=== PATIENT | male | born 1960 | race Caucasian/White ===

== ENCOUNTER 2019-07-15 06:43 | Outpatient (CLI) | payer OTHER, SELFPAY | END 2019-07-15 06:44 | disposition home or self-care (01) | PROVIDERS: PCP Family Medicine; Visit Provider Surgery | DX: Z01.818 Encounter for other preprocedural examination (principal); Z11.59 Encounter for screening for other viral diseases | CPT/HCPCS: 87635; C9803; U0003 ==

== ENCOUNTER 2019-07-15 15:16 | Outpatient (CLI) | payer OTHER, SELFPAY | END 2019-07-15 15:17 | disposition home or self-care (01) | LOC: ANHSURGERY 15:19 | PROVIDERS: PCP Family Medicine; Visit Provider Surgery | DX: Z01.818 Encounter for other preprocedural examination (principal); K40.90 Unilateral inguinal hernia, without obstruction or gangrene, not specified as recurrent | CPT/HCPCS: 36415; 86850; 86900; 86901 ==

== ENCOUNTER 2019-07-17 08:53 | Outpatient (CLI) | payer OTHER, SELFPAY ==
[2019-07-17 18:00] LABS: SARS-CoV-2 RNA PCR Negative
== END 2019-07-17 08:54 | disposition home or self-care (01) ==
PROVIDERS: PCP Family Medicine; Visit Provider Surgery
DX: Z01.818 Encounter for other preprocedural examination (principal); Z11.59 Encounter for screening for other viral diseases
CPT/HCPCS: 87635; C9803; U0003

== ENCOUNTER 2019-07-18 01:15 | Day surgery (SDC) | payer OTHER, SELFPAY ==
[2019-07-10 13:52] VITALS: BMI 24.5
--- NOTE | 2019-07-17 12:13 | WPDANESEPPF ---
Anes - Initial Pre Proc Eval Procedure: Operation Date: 07/18/19 10:30 Proposed Procedures p Laparoscopic Left Inguinal Hernia Repair With Mesh, Davinci Assisted - Elroy Khan DO Date/Time: 07/17/19 12:13 Surgeon: Elroy Khan DO Pre Op Diagnosis: Left Inguinal Hernia Patient Data Age: 59 Gender: M Height: 6 ft 5 in Weight: 94 kg Allergies Allergy/AdvReac Type Severity Reaction Status Date / Time No Known Allergies Allergy Verified 07/10/19 13:54 Home Medications Medication Instructions Recorded Confirmed Type No Home Medications 07/10/19 07/10/19 History Patient hx anesthesia problems: none Family hx anesthesia problems: none [facility] Past Medical History Medical History Left inguinal hernia Mixed hyperlipidemia Family History Family History Father Malignant neoplasm of prostate Family history of lymphoma Mother No problems noted. Social History Social History Smoking status: Never smoker Alcohol intake: current Anes - Eval Final PreProcedure Day of Procedure 07/17/19 12:13 Patient weight: overweight Heart: regular rate and rhythm Lungs: clear to auscultation Airway: Mallampati scale class II Neurological: alert and oriented Last oral intake: >/= 8 hours ASA classification: II Emergent: no Anesthetic plan: proceed Anesthesia type and monitoring: general ETT and standard monitoring Informed Consent: The patient's anesthetic plan and its attendant risks and benefits were discussed with the patient/family/POA. Questions were solicited and answers provided to the satisfaction of the patient/family/POA.
[2019-07-18] VITALS (9 sets, daily range): BP systolic 107–120; BP diastolic 67–84; PULSE 44–65; RESP 14–18; TEMP 36.7–36.8; O2SAT 97–100
[2019-07-18] MEDS: LACTATED RINGERS 1,000 ML 30 ML IV CONT ×2 (09:40→12:37)
--- NOTE | 2019-07-18 10:35 | P.HP_ITS ---
H&P: HPI History of Present Illness Chief complaint: Left Inguinal Hernia Narrative: Lisandro Guzman is a 59 year old male who presented with pain in his left groin for the past several months. He noticed this first when lifting heavy objects. He was found to have a left inguinal hernia on exam and now pres ents for elective repair. Review of Systems Review of Systems: All systems reviewed & are unremarkable except as noted in HPI and below PMFSH Past Medical History Medical History Left inguinal hernia Mixed hyperlipidemia Family History Family History Father Malignant neoplasm of prostate Family history of lymphoma Mother No problems noted. Social History Social History Smoking status: Never smoker Alcohol intake: current Meds Home Medications and Allergies Home Medications Medication Instructions Recorded Confirmed Type No Home Medications 07/10/19 07/10/19 History Allergies Allergy/AdvReac Type Severity Reaction Status Date / Time No Known Allergies Allergy Verified 07/10/19 13:54 Vital Signs Vital Signs - 24 hr 07/18/19 09:52 Temperature 36.7 C Pulse Rate 58 L Respiratory Rate 16 Blood Pressure 113/84 Pulse Oximetry 97 Exam GI: GI Palp: Yes Soft to palpation and No Tenderness to palpation present (GI) Percussion: Yes normal to percussion Auscultation: normal bowel sounds : Scrotum: inguinal hernia on the left Assessment and Plan Assessment and plan (1) Left inguinal hernia: Code(s): K40.90 - Unilateral inguinal hernia, without obstruction or gangrene, not specified as recurrent Status: Acute Assessment and Plan: I have recommended laparoscopic left inguinal hernia repair with mesh, da Eliz assisted. I have discussed the procedure, risks, benefits, and alternatives with the patient. All questions answered. No changes since last seen in office.
[2019-07-18] MEDS: ceFAZolin 2 GM/D5W 50 ML 2 GM/50 ML BAG IVPB (11:02)
[2019-07-18] MEDS: IBUPROFEN IV 800 MG/200 ML 800 MG/200 ML BAG 400 MG IVPB (11:22)
[2019-07-18] MEDS: BUPIVACAINE/EPINEPHRINE 0.5% 30 ML VIAL INFILTRATE (11:37)
--- NOTE | 2019-07-18 12:21 | SUR.OPER ---
Ebl=10ml
--- NOTE | 2019-07-18 12:32 | PM.PROC ---
Procedure Note - Detailed Date of procedure: 07/18/19 Pre-op diagnosis: Left Inguinal Hernia Post-op diagnosis: same (Indirect LIH) Procedure performed: Laparoscopic left inguinal hernia repair with Progrip mesh, da Eliz assisted Description of procedure: Procedure as well as risks, benefits, and alternatives were discussed with the patient. Written consent was obtained and placed in chart prior to procedure. Patient was brought back to surgical suite. He was placed supine on operating table. Time-out was done to confirm patient and procedure. He was then intubated by Anesthesia Department. His abdomen was prepped and draped in sterile fashion using chlorhexidine prep. 0.5% bupivacaine with epinephrine was infiltrated at each location for incision. A 12 millimeter transverse incision was made just superior to the umbilicus using a 15 blade scalpel. Blunt dissection was carried out down to the linea alba. A vertical incision was made at the linea alba using a 15 blade scalpel. The peritoneum was then bluntly entered. A 12 millimeter trocar was inserted and carbon dioxide insufflation was used to create a pneumoperitoneum. A camera was inserted and the abdominal cavity was inspected. The patient was placed in slight Trendelenburg position. An 8 millimeter incision was made on the right lateral abdomen and an 8 millimeter trocar was inserted under direct visualization. Another 8 millimeter incision was made in the left lateral abdomen and an 8 millimeter trocar was inserted under direct visualization. The robotic arms were brought up to the patient's bedside and secured to the ports. The camera and instruments were inserted. I then moved over to the robotic console and took control of the camera and instruments. After careful inspection of the abdominal cavity, I began scoring the peritoneum along the left lower quadrant using scissors with electrocautery. The preperitoneal plane was entered and this was carefully dissected caudally along the inferior epigastric vessels. Careful dissection with scissors with electrocautery and blunt dissection was used to continue this dissection. I dissected far enough laterally to allow for mesh placement, and also dissected medially to identify the pubic arch and Sin's ligament. The hernia sac was identified and carefully dissected posteriorly. The cord contents were also identified and the peritoneum was carefully dissected far enough posteriorly to allow for mesh placement. Once an adequate pocket was created, I then placed the mesh within the preperitoneal pocket and carefully unfolded it. The mesh was centered on the hernia defect with adequate overlap circumferentially. The inferior edge of the mesh was inspected to ensure that it was far enough away from the peritoneal edge. The mesh appeared in proper position overlying the entire myopectineal orifice. The peritoneum was then closed over the mesh using a 3-0 V-lock running absorbable suture. The robotic instruments were removed. The robotic arms were disengaged from the ports and moved away from the bedside. The patient was flattened out in bed, the ports were removed under direct visualization, and the pneumoperitoneum was released. The fascia of the umbilical incision was approximated using an 0 Vicryl [id number] suture. The skin of the incisions was approximated using 4-0 Monocryl subcuticular suture, and Exofin glue was applied on top. The patient was awakened from anesthesia, extubated, and transferred to recovery. Implants: Progrip Mesh 12cm x 16cm Anesthesia: GETA and local (0.5% bupivicaine with epi) Surgeon: Elroy Khan DO Estimated blood loss (mL): 10 Drains: No Packing: No Pathology: none sent Complications: No immediate complications Condition: stable Disposition: same day Findings: This is a 59-year-old man who presented with discomfort and a bulge in his left groin region. He 1st noticed this several months ago while
== END 2019-07-18 15:11 | disposition home or self-care (01) ==
PROVIDERS: PCP Family Medicine; Visit Provider Surgery
PROC: 8E0Y4CZ Robotic Assisted Procedure of Lower Extremity, Percutaneous Endoscopic Approach (ICD-10-PCS; CPT 49650; principal; 2019-07-18 10:30)
DX: K40.90 Unilateral inguinal hernia, without obstruction or gangrene, not specified as recurrent (principal); E78.2 Mixed hyperlipidemia
CPT/HCPCS: 49650; S2900; A9270; C1781; J0690; J1100; J1741; J2250; J2405; J2704; J2710; J3010; J7120

== ENCOUNTER 2021-08-08 08:30 | Emergency (ER) | payer OTHER, SELFPAY ==
--- NOTE | 2021-08-08 08:32 | ED.GENADULT ---
HPI - General Adult General Chief complaint: Upper Respiratory Infection Stated complaint: Cough Time Seen by Provider: 08/08/21 08:31 History of Present Illness HPI narrative: 61-year-old male patient presents to the [facility] with complaints of cold and flulike symptoms for the past 5 to 6 days. Patient states he has had a runny nose, cough that will not go away, body aches and fevers. Patient states he did not get vaccinated for influenza but is vaccinated for COVID. Patient states he has not tested himself for COVID. Patient states that his 's first had very similar symptoms and then he developed them. Patient states he started with a sore throat that has now since resolved but continues to have a cough. Denies any history of smoking. Related Data Allergies Allergy/AdvReac Type Severity Reaction Status Date / Time No Known Allergies Allergy Verified 08/08/21 08:41 Review of Systems Review of Systems: CONSTITUTIONAL: Positive fever, chills, body aches, denies sweats. EYES: Denies visual changes, redness, or discharge. ENT: Positive rhinorrhea, congestion, positive sore throat, but has since resolved, denies otalgia. CARDIOVASCULAR: Denies chest pain, palpitations, or edema. RESPIRATORY: Positive cough, denies dyspnea. GASTROINTESTINAL: Denies abdominal pain, nausea, vomiting, or diarrhea. GENITOURINARY: Denies dysuria or hematuria. SKIN: Denies rash or itching. MUSCULOSKELETAL: Denies back pain, joint pain, or myalgia. NEUROLOGIC: Positive headache, denies numbness, or weakness. PSYCHIATRIC: Denies anxiety or depression. [facility] Past Medical History Medical History (Updated 08/08/21 @ 09:21 by GIOVANNI Dorman) Left inguinal hernia Mixed hyperlipidemia Unilateral inguinal hernia without obstruction or gangrene Surgical History Surgical History (Updated 08/08/21 @ 08:52 by GIOVANNI Dorman) History of appendectomy History of inguinal hernia repair Laparoscopic left inguinal hernia repair with Progrip mesh,[facility] assisted 07/17/19 History of orthopedic surgery Arthroscopic right knee Family History Family History Father Malignant neoplasm of prostate Family history of lymphoma Mother No problems noted. Social History Social History (Reviewed 08/08/21 @ 08:51 by CRICKET Dorman Smoking status: Never smoker Alcohol intake: current Comments At the time of my signature I agree with nursing past medical history, surgical, social, and family history. There is no relevant family history pertinent to the presenting complaint. Exam Narrative: GENERAL: ill-appearing, well-nourished, and in no acute distress. HEAD: Normocephalic, atraumatic. EYES: PERRLA and EOMI. ENT: Nares with edema noted bilaterally with the left naris completely swollen shut, yellow rhinorrhea present, no epistaxis. Mucous membranes moist. Posterior pharynx with no erythema, tonsillar lodgment, exudates or lesions present. The left TM with no erythema or foreign bodies to the canal. Unable to assess the right TM due to cerebrum impaction NECK: Supple. No lymphadenopathy CHEST: Clear to auscultation. No respiratory distress. Patient able talk in clear complete sentences. HEART: Regular rate and rhythm. No murmur heard. Normal peripheral pulses. ABDOMEN: Soft, nontender, nondistended, normal active bowel sounds. EXTREMITIES: Normal range of motion. No edema. SKIN: Warm, dry, no rash. NEURO: No focal deficits. Alert and oriented x3. Course Course Level of Care: Express Care Visit Reevaluation(s) Reevaluation #1: Reevaluated patient notified patient that his rapid COVID and flu are both negative today however given his symptoms I did do a PCR we will send this off to the lab for evaluation. Discussed with patient that we will go ahead and treat him as a viral URI at this time discharge him home with an oral steroid, daily antihistamine, nasal steroid, an
[2021-08-08 08:36] VITALS: BP 141/78; PULSE 79; RESP 18; TEMP 38.7; O2SAT 99
[2021-08-08 09:02] VITALS: TEMP 38.7
[2021-08-08] MEDS: ACETAMINOPHEN 500 MG TABLET 1000 MG PO (09:02)
[2021-08-08 09:25] VITALS: TEMP 38.2
[2021-08-08 20:05] LABS: SARS-CoV-2 RNA PCR Negative
== END 2021-08-08 09:25 | disposition home or self-care (01) ==
PROVIDERS: Emergency Provider Nurse Practitioner Family; PCP Family Medicine
DX: J06.9 Acute upper respiratory infection, unspecified (principal); R05.9 Cough, unspecified; Z20.822 Contact with and (suspected) exposure to COVID-19; E78.2 Mixed hyperlipidemia
CPT/HCPCS: 87426; 87804; 99213; A9270; C9803; G0463; U0003; U0005

== ENCOUNTER 2021-08-11 07:43 | Emergency (ER) | payer OTHER, SELFPAY ==
--- NOTE | ~2021-08-11 | XR_ITS ---
EXAMINATION: XR chest 2V DATE: 08/11/2021 08:15 INDICATION: Cough. TECHNIQUE: Frontal and lateral views of the chest were obtained. COMPARISON: Chest single view 04/22/2013 FINDINGS: There are airspace opacities in left lower lobe, consistent with pneumonia. No pleural effu desean or pneumothorax. The heart size is normal. IMPRESSION: 1. Left lower lobe pneumonia. Reviewed, dictated and finalized at location B.
[2021-08-11 07:51] VITALS: BP 132/83; PULSE 94; RESP 18; TEMP 37.8; O2SAT 93
--- NOTE | 2021-08-11 08:10 | ED.URI ---
HPI - URI/Sore Throat General Chief Complaint: Upper Respiratory Infection Stated Complaint: persistent cough, seen at [facility] Time Seen by Provider: 08/11/21 07:58 Source: patient History of Present Illness HPI Narrative: Patient presents with cough for approximately 1 week. Patient reports been seen in urgent cares has had viral swabs which were negative. Is been prescribed Tessalon Perles steroids albuterol Flonase however symptoms have not resolved so he came to the ER for further evaluation. Denies any chest pain or shortness of breath. Reports subjective fevers. Denies any nausea or vomiting. Reports mild abdominal pain due to his cough. Related Data Allergies Allergy/AdvReac Type Severity Reaction Status Date / Time No Known Allergies Allergy Verified 08/11/21 07:55 Review of Systems Review of Systems: CONSTITUTIONAL: Denies fever, chills, or sweats. EYES: Denies visual changes, redness, or discharge. ENT: Denies rhinorrhea, congestion, sore throat, or otalgia. CARDIOVASCULAR: Denies chest pain, palpitations, or edema. RESPIRATORY: Reports nonproductive cough GASTROINTESTINAL: Denies abdominal pain, nausea, vomiting, or diarrhea. GENITOURINARY: Denies dysuria or hematuria. SKIN: Denies rash or itching. MUSCULOSKELETAL: Denies back pain, joint pain, or myalgia. NEUROLOGIC: Denies headache, numbness, dizziness, or weakness. PSYCHIATRIC: Denies anxiety or depression. All systems reviewed & are unremarkable except as noted in HPI and below PMFSH Past Medical History Medical History Left inguinal hernia Mixed hyperlipidemia Unilateral inguinal hernia without obstruction or gangrene Surgical History Surgical History History of appendectomy History of inguinal hernia repair Laparoscopic left inguinal hernia repair with Progrip mesh,[facility] assisted 07/17/19 History of orthopedic surgery Arthroscopic right knee Family History Family History Father Malignant neoplasm of prostate Family history of lymphoma Mother No problems noted. Social History Social History Smoking status: Never smoker Alcohol intake: current Exam Narrative: GENERAL: Well-appearing, well-nourished, and in no acute distress. HEAD: Normocephalic, atraumatic. EYES: PERRLA and EOMI. ENT: Nares clear, no rhinorrhea or epistaxis. Mucous membranes moist. NECK: Supple. No masses. No JVD CHEST: Clear to auscultation. No respiratory distress. No wheezes rales or rhonchi HEART: Regular rate and rhythm. No murmur heard. Normal peripheral pulses. ABDOMEN: Soft, nontender, nondistended, normal active bowel sounds. EXTREMITIES: Normal range of motion. No edema. SKIN: Warm, dry, no rash. NEURO: No focal deficits. Alert and oriented x3. PSYCH: Normal mood and affect. Course Reevaluation(s) Reevaluation #1: Patient resting comfortably results reviewed with patient. Patient is comfortable with outpatient plan. Date: 08/11/21 Time: 08:35 Vital Signs Vital signs: Vital Signs Temperature 37.8 C H 08/11/21 07:51 Pulse Rate 94 08/11/21 07:51 Respiratory Rate 18 08/11/21 07:51 Blood Pressure 132/83 08/11/21 07:51 Pulse Oximetry 93 08/11/21 07:51 Oxygen Delivery Room Air 08/11/21 07:51 Temperature 37.8 C H 08/11/21 07:51 Pulse Rate 90 08/11/21 08:46 Respiratory Rate 18 08/11/21 08:46 Blood Pressure 108/65 08/11/21 08:46 Pulse Oximetry 93 08/11/21 08:46 Oxygen Delivery Room Air 08/11/21 07:51 MDM - URI/Sore Throat MDM Narrative Medical decision making narrative: H&P as above, vss, pt looks clinically well, exam is clear lungs, prior labs reviewed and clinically unremarkable, img with developing pneumonia, additional labs/img considered, symptomatic relief available as neede
[2021-08-11 08:46] VITALS: BP 108/65; PULSE 90; RESP 18; O2SAT 93
== END 2021-08-11 08:46 | disposition home or self-care (01) ==
PROVIDERS: Emergency Provider Emergency Medicine; PCP Family Medicine
DX: J18.9 Pneumonia, unspecified organism (principal); E78.5 Hyperlipidemia, unspecified
CPT/HCPCS: 71046; 99283